=== PATIENT | male | born 1965 | race Caucasian/White ===

== ENCOUNTER → 2017-07-08 | Outpatient (CLI) | payer BC ==
[~2017-07-08] MED LIST: CARI350 PO; CLON.5 PO; CLON1 PO; Carafate1 GM/10 ML PO; Catapres0.1 MG PO; Dazidox10 MG PO; GLIP5 PO; Glucophage1000 MG PO; HYDACE10B PO; Hair, Skin & N1 EACH PO; IBUP800 PO; LISI20 PO; Multiple Vitam1 EAC1 PO; NAPR500 PO; Neurontin 300300 MG PO; OMEP40CA12 PO; OXYC10TA19 PO; PRED20 PO; Percocet 5-3251 EACH PO; Prednisone20 MG PO; Prinivil10 MG PO; Protonix40 MG PO; RXLORA1 PO; Robaxin500 MG PO; SOMA250 MG; VENL150ER PO; Valium10 MG PO; Zofran4 MG PO
[2017-07-08 14:10] LABS: BASOPHILS PERCENT AUTO 0 % (0-2); EOSINOPHILS ABSOLUTE AUTO 0.09 K/mm3 (0.00-0.68); EOSINOPHILS PERCENT AUTO 2 % (0-6); Hematocrit 44.9 % (37.0-53.0); Hemoglobin 15.5 g/dL (13.5-17.5); IMMATURE GRAN ABSOLUTE AUTO 0.01 K/mm3 (0.00-0.10); IMMATURE GRAN PERCENT AUTO 0 % (0-1); LYMPHOCYTES ABSOLUTE AUTO 2.09 K/mm3 (0.84-5.20); LYMPHOCYTES PERCENT AUTO 36 % (21-46); MONOCYTES ABSOLUTE AUTO 0.34 K/mm3 (0.16-1.47); MONOCYTES PERCENT AUTO 6 % (4-13); Mean Corpuscular HGB 30.1 pg (26.0-34.0); Mean Corpuscular HGB Conc 34.5 g/dL (31.5-36.5); Mean Corpuscular Volume 87 fL (80-100); Mean Platelet Volume 10.3 fL (9.1-12.4); NEUTROPHILS ABSOLUTE AUTO 3.27 K/mm3 (1.96-9.15); NEUTROPHILS PERCENT AUTO 56 % (41-73); Platelet Count 164 K/mm3 (150-400); RDW Coefficient Variation 11.8 % (11.7-14.2); RDW Standard Deviation 38.1 fL (35.1-46.3); Red Blood Cell Count 5.15 M/mm3 (4.30-5.90)
[2017-07-08 14:31] LABS: Alanine Aminotransfer (ALT/SGP 65 U/L (12-78); Albumin, Blood 4.3 g/dL (3.4-5.0); Albumin/Globulin Ratio 1.3 (0.8-1.8); Alk Phos 76 U/L (50-136); Anion Gap 6 mmol/L (6-16); Aspartate Aminotrans (AST/SGOT 31 U/L (12-37); Bilirubin, Total 1.4 mg/dL (0.1-1.0); Blood Urea Nitrogen 14 mg/dL (8-24); Bun/Creatinine Ratio 18.9 (12.0-20.0); CO2, Blood 32 mmol/L (21-32); Chloride, Blood 98 mmol/L (98-108); Creatinine, Blood 0.74 mg/dL (0.60-1.20); Globulin, Blood 3.3 g/dL (2.2-4.0); Glomerular Filtration Rate >60 (60-); Glucose, Blood 117 mg/dL (70-99); Potassium, Blood 4.1 mmol/L (3.5-5.5); Sodium, Blood 136 mmol/L (136-145); Total Protein, Blood 7.6 g/dL (6.4-8.2)
== END ==
LOC: LAB 14:03
PROVIDERS: Physician Assistant
DX: R10.9 Unspecified abdominal pain (principal)
CPT/HCPCS: 36415; 80053; 83690; 85025; 85027

== ENCOUNTER 2017-09-08 10:17 | Observation (INO) | payer BC ==
[~2017-09-08] VITALS: Ht 182.9 cm; Wt 122.5 kg
[~2017-09-08 10:17] MED LIST changes: -Hair, Skin & N1 EACH PO; -Prinivil10 MG PO
[2017-09-08] MEDS ORDERED: Prinivil10 MG PO (11:20)
[2017-09-08 11:47] LABS: Bilirubin, Urine Neg (Neg); Blood, Urine Neg (Neg); Glucose Qualitative, Urine 2+ (Neg); Ketones, Urine Neg (Neg); Leukocyte Esterase, Urine 1+ (Neg); Nitrite, Urine Neg (Neg); Protein, Urine Neg (Neg); Urobilinogen, Urine NORM (Normal)
[2017-09-08 11:49] LABS: BASOPHILS ABSOLUTE AUTO 0.02 K/mm3 (0.00-0.23); BASOPHILS PERCENT AUTO 0 % (0-2); EOSINOPHILS ABSOLUTE AUTO 0.07 K/mm3 (0.00-0.68); EOSINOPHILS PERCENT AUTO 1 % (0-6); Hematocrit 43.6 % (37.0-53.0); Hemoglobin 14.8 g/dL (13.5-17.5); IMMATURE GRAN ABSOLUTE AUTO 0.02 K/mm3 (0.00-0.10); IMMATURE GRAN PERCENT AUTO 0 % (0-1); LYMPHOCYTES ABSOLUTE AUTO 1.43 K/mm3 (0.84-5.20); LYMPHOCYTES PERCENT AUTO 28 % (21-46); MONOCYTES ABSOLUTE AUTO 0.29 K/mm3 (0.16-1.47); MONOCYTES PERCENT AUTO 6 % (4-13); Mean Corpuscular HGB 29.5 pg (26.0-34.0); Mean Corpuscular HGB Conc 33.9 g/dL (31.5-36.5); Mean Corpuscular Volume 87 fL (80-100); Mean Platelet Volume 9.8 fL (9.1-12.4); NEUTROPHILS ABSOLUTE AUTO 3.36 K/mm3 (1.96-9.15); NEUTROPHILS PERCENT AUTO 65 % (41-73); Platelet Count 157 K/mm3 (150-400); RDW Coefficient Variation 11.8 % (11.7-14.2); RDW Standard Deviation 37.2 fL (35.1-46.3); Red Blood Cell Count 5.02 M/mm3 (4.30-5.90); White Blood Cell Count 5.19 K/mm3 (4.00-11.30)
[2017-09-08 12:04] LABS: Appearance, Urine Clear (Clear); Color, Urine Yellow (P-Yellow)
[2017-09-08 12:10] LABS: Ethanol (Alcohol), Blood, Med <3 mg/dL; Red Blood Cells, Urine Not Seen /hpf (0-2); Salicylate <1.7 mg/dL (2.8-20.0); White Blood Cells, Urine 0-2 /hpf (0-5)
[2017-09-08 12:11] LABS: Bacteria Not Seen /hpf; Squamous Epithelial Cells Not Seen /hpf (Few)
[2017-09-08 12:15] LABS: Alanine Aminotransfer (ALT/SGP 46 U/L (12-78); Albumin, Blood 3.8 g/dL (3.4-5.0); Alk Phos 76 U/L (50-136); Anion Gap 4 mmol/L (6-16); Aspartate Aminotrans (AST/SGOT 23 U/L (12-37); Bilirubin, Total 0.6 mg/dL (0.1-1.0); Blood Urea Nitrogen 11 mg/dL (8-24); Bun/Creatinine Ratio 16.7 (12.0-20.0); CO2, Blood 30 mmol/L (21-32); Calcium, Blood 8.8 mg/dL (8.5-10.1); Chloride, Blood 103 mmol/L (98-108); Creatinine, Blood 0.66 mg/dL (0.60-1.20); Globulin, Blood 3.7 g/dL (2.2-4.0); Glomerular Filtration Rate >60 (60-); Glucose, Blood 200 mg/dL (70-99); Potassium, Blood 4.3 mmol/L (3.5-5.5); Sodium, Blood 137 mmol/L (136-145); Total Protein, Blood 7.5 g/dL (6.4-8.2); U Amphetamine Screen Not Detected; U Barbituate Screen Not Detected; U Benzodiazapine Screen DETECTED; U Buprenorphine Screen Not Detected; U Cannabinoids Screen Not Detected; U Cocaine Screen Not Detected; U Methadone Screen Not Detected; U Methamphetamine Screen Not Detected; U Opiates Screen Not Detected; U Oxycodone Screen DETECTED; U Phencyclidine Screen Not Detected; U Propoxyphene Screen Not Detected
[2017-09-08 12:22] LABS: Acetaminophen, Random <2.0 ug/mL (10.0-30.0)
[2018-06-04] MEDS ORDERED: Hair, Skin & N1 EACH PO (07:10)
== END 2017-09-09 22:21 | disposition home or self-care (01) ==
LOC: ER 10:17 → EOR 10:18
PROVIDERS: Emergency Medicine
DX: R45.851 Suicidal ideations (principal); F32.9 Major depressive disorder, single episode, unspecified; G89.4 Chronic pain syndrome; M54.2 Cervicalgia; M54.5 Low back pain; F41.9 Anxiety disorder, unspecified; E11.9 Type 2 diabetes mellitus without complications; I10 Essential (primary) hypertension; F17.220 Nicotine dependence, chewing tobacco, uncomplicated; Z88.8 Allergy status to other drugs, medicaments and biological substances; Z79.84 Long term (current) use of oral hypoglycemic drugs; Z79.891 Long term (current) use of opiate analgesic; Z79.899 Other long term (current) drug therapy
CPT/HCPCS: 36415; 80053; 81001; 84443; 85025; 99285; G0378; G0480

== ENCOUNTER 2017-10-25 19:01 | Emergency (ER) | payer BC ==
[~2017-10-25] VITALS: Ht 185.4 cm; Wt 122.5 kg
[~2017-10-25 19:01] MED LIST changes: +Prinivil10 MG PO
[2018-06-04] MEDS ORDERED: Hair, Skin & N1 EACH PO (07:10)
== END 2017-10-25 21:20 | disposition left against medical advice (07) ==
LOC: ER 19:01
DX: Z53.21 Procedure and treatment not carried out due to patient leaving prior to being seen by health care provider (principal)

== ENCOUNTER 2019-02-10 04:02 | Emergency (ER) | payer BC ==
[~2019-02-10] VITALS: Ht 182.9 cm; Wt 122.5 kg
[~2019-02-10 04:02] MED LIST changes: +Hair, Skin & N1 EACH PO
[2019-02-10 04:26] LABS: Source, Urine Clean Catch
[2019-02-10 04:31] LABS: Bilirubin, Urine Neg (Neg); Blood, Urine Neg (Neg); Glucose Qualitative, Urine 3+ (Neg); Ketones, Urine 1+ (Neg); Leukocyte Esterase, Urine 1+ (Neg); Nitrite, Urine Neg (Neg); Protein, Urine 2+ (Neg); Specific Gravity, Urine 1.025 (1.003-1.022); Urobilinogen, Urine NORM (Normal)
[2019-02-10 05:01] LABS: Appearance, Urine Clear (Clear); Color, Urine Yellow (P-Yellow)
[2019-02-10 05:02] LABS: Amorphous Light (0-Heavy); Bacteria Few /hpf; Mucus Light (0-Heavy); Red Blood Cells, Urine Not Seen /hpf (0-2); Squamous Epithelial Cells Rare /hpf (Few); White Blood Cells, Urine 0-2 /hpf (0-5)
[2019-02-10] MEDS ORDERED: Doxycycline Hy100 MG PO (05:14)
== END 2019-02-10 05:25 | disposition home or self-care (01) ==
LOC: ER 04:02
PROVIDERS: Emergency Medicine
DX: N50.89 Other specified disorders of the male genital organs (principal); N43.3 Hydrocele, unspecified; R82.71 Bacteriuria; Z88.8 Allergy status to other drugs, medicaments and biological substances; Z79.899 Other long term (current) drug therapy; Z79.84 Long term (current) use of oral hypoglycemic drugs; F41.9 Anxiety disorder, unspecified; E11.9 Type 2 diabetes mellitus without complications; I10 Essential (primary) hypertension
CPT/HCPCS: 81001; 87086; 96372; 99284-25; J1885

== ENCOUNTER → 2019-08-10 | Outpatient (CLI) | payer OTHER ==
[~2019-08-10] MED LIST changes: +Doxycycline Hy100 MG PO
== END ==
LOC: LAB SHORT 10:45 → LAB 10:45
DX: R30.0 Dysuria (principal)
CPT/HCPCS: 87086

== ENCOUNTER 2020-08-06 20:55 | Emergency (ER) | payer OTHER ==
[~2020-08-06] VITALS: Ht 182.9 cm; Wt 113.4 kg
[2020-08-06] MEDS ORDERED: LOSA25 PO (22:04)
[2020-08-06] MEDS ORDERED: TIZA4 (22:05)
== END 2020-08-06 23:12 | disposition home or self-care (01) ==
LOC: ER 20:55
DX: R22.1 Localized swelling, mass and lump, neck (principal); M54.2 Cervicalgia; G89.29 Other chronic pain; E11.9 Type 2 diabetes mellitus without complications; I10 Essential (primary) hypertension; F17.220 Nicotine dependence, chewing tobacco, uncomplicated; Z88.8 Allergy status to other drugs, medicaments and biological substances; Z79.84 Long term (current) use of oral hypoglycemic drugs; Z79.899 Other long term (current) drug therapy
CPT/HCPCS: 99283

== ENCOUNTER 2020-08-11 12:29 | Emergency (ER) | payer OTHER ==
[~2020-08-11] VITALS: Ht 182.9 cm; Wt 113.4 kg
[~2020-08-11 12:29] MED LIST changes: +LOSA25 PO; +TIZA4
== END 2020-08-11 14:18 | disposition home or self-care (01) ==
LOC: ER 12:29
DX: M54.2 Cervicalgia (principal); M54.6 Pain in thoracic spine; G89.29 Other chronic pain; E11.9 Type 2 diabetes mellitus without complications; I10 Essential (primary) hypertension; Z88.8 Allergy status to other drugs, medicaments and biological substances; Z79.84 Long term (current) use of oral hypoglycemic drugs; Z79.899 Other long term (current) drug therapy
CPT/HCPCS: 72040; 96372; 99284-25; J1170

== ENCOUNTER 2022-06-24 13:06 | Emergency (ER) | payer OTHER ==
[~2022-06-24] VITALS: Ht 182.9 cm; Wt 99.8 kg
[~2022-06-24 13:06] MED LIST changes: -Glucophage1000 MG PO; +METF500 PO; -TIZA4; +TIZA4 PO
== END 2022-06-24 14:50 | disposition home or self-care (01) ==
LOC: ER 13:06
DX: M54.2 Cervicalgia (principal); G89.29 Other chronic pain; Z98.1 Arthrodesis status
CPT/HCPCS: 36415; J1885

== ENCOUNTER 2022-06-29 14:59 | Emergency (ER) | payer OTHER ==
[~2022-06-29] VITALS: Ht 182.9 cm; Wt 99.8 kg
== END 2022-06-29 17:52 | disposition home or self-care (01) ==
LOC: ER 14:59
DX: M54.2 Cervicalgia (principal); E11.9 Type 2 diabetes mellitus without complications; I10 Essential (primary) hypertension; Z79.84 Long term (current) use of oral hypoglycemic drugs; Z79.899 Other long term (current) drug therapy; Z88.8 Allergy status to other drugs, medicaments and biological substances

== ENCOUNTER → 2025-01-06 | Outpatient (CLI) | payer OTHER | LOC: LAB SHORT 15:00 → LAB 15:00 → LAB SHORT 01-07 08:24 → LAB FUT 01-06 10:05 → EDSTATUS 01-06 10:05 | DX: E11.9 Type 2 diabetes mellitus without complications (principal) | CPT/HCPCS: 82043 ==